=== PATIENT | male | born 1985 | race Caucasian/White ===

== ENCOUNTER 2021-08-13 16:56 | Emergency (ER) | payer MEDICAID, SELFPAY ==
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
[2021-08-13 17:04] VITALS: BP 124/76; PULSE 115; RESP 18; TEMP 36.6; O2SAT 98; BMI 33.4
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
== END 2021-08-13 19:03 ==
PROVIDERS: Emergency Provider Internal Medicine
DX: F10.920 Alcohol use, unspecified with intoxication, uncomplicated (principal); Y90.9 Presence of alcohol in blood, level not specified; S00.83XA Contusion of other part of head, initial encounter; Y04.2XXA Assault by strike against or bumped into by another person, initial encounter; Y93.9 Activity, unspecified; Y92.9 Unspecified place or not applicable; Y99.9 Unspecified external cause status
CPT/HCPCS: 70450; 99282; 99284

== ENCOUNTER 2021-09-14 18:31 | Emergency (ER) | payer MEDICAID, SELFPAY ==
[2021-09-14 18:44] VITALS: BP 170/114; BP 171/112; PULSE 100; PULSE 91; RESP 19; TEMP 36.9; O2SAT 96; BMI 29.0
--- NOTE | 2021-09-14 19:35 | ECG_ITS ---
Test Reason : OVERDOSE Blood Pressure : / mmHG Vent. Rate : 080 BPM Atrial Rate : 080 BPM P-R Int : 140 ms QRS Dur : 096 ms QT Int : 374 ms P-R-T Axes : 000 157 151 degrees QTc Int : 431 ms Limb lead reversal. Normal sinus rhythm with sinus arrhythmia Otherwise normal ECG No previous ECGs available Referred By: Quincy Askew Electronically Signed By:Antonio Lucas
--- NOTE | 2021-09-14 19:36 | ED_ITS ---
HPI - General Adult General Chief complaint: Anxiety Stated complaint: ?medication error Time Seen by Provider: 09/14/21 19:34 Source: patient and EMS Mode of arrival: EMS Limitations: no limitations History of Present Illness HPI narrative: 35-year-old male brought in by ambulance for evaluation after taking too many pills of gabapentin for anxiety. Patient stated that he talk 13-14 pills of 300 mg each gabapentin that he normally use for anxiety, patient felt very anxious trying to calm himself down, patient declined any intention to hurt himself, not feeling suicidal or homicidal, no hallucination. Patient had a history of high blood pressure taking metoprolol normally. Patient appears anxious just because being in the hospital setting, Related Data Allergies Allergy/AdvReac Type Severity Reaction Status Date / Time clarithromycin [From Biaxin] Allergy Mild UNKNOWN Unverified 06/25/20 16:50 haloperidol [From Haldol] Allergy Mild UNKNOWN Unverified 06/25/20 16:50 sertraline [From Zoloft] Allergy Mild seizure Unverified 06/25/20 16:50 Review of Systems Review of Systems: All other systems are reviewed and are negative Constitutional: Reports as per HPI and Reports no additional constitutional complaints Eyes: Reports as per HPI and Reports no additional eye complaints Reports system reviewed and no additional complaints, except as documented Cardiovascular: Reports as per HPI and Reports no additional cardiovascular complaints Respiratory: Reports as per HPI and Reports no additional respiratory complaints Gastrointestinal: Reports as per HPI and Reports no additional gastrointestinal complaints Genitourinary: Reports no additional female genitourinary complaints Musculoskeletal: Reports no additional musculoskeletal complaints Skin/Breast: Reports system reviewed and no additional complaints, except as docu Psychiatric: Reports no additional psychiatric complaints Endocrine: Reports no additional endocrine complaints Hematologic/Lymphatic: Reports no additional hematologic/lymphatic complaints Allergic/Immunologic: Reports no additional allergic/immunologic complaints Reports system reviewed and no additional complaints, except as documented and Reports Abnormal speech present [facility] Social History Social History Advance Directives: No Physical Exam Vital Signs: Vital Signs: Last Vital Signs Temp 98.5 F 09/14/21 20:02 Pulse 93 09/14/21 20:02 Resp 20 09/14/21 20:02 BP 145/98 H 09/14/21 20:02 Pulse Ox 96 09/14/21 18:44 BMI result Body Mass Index 29.0 Vital signs have been reviewed as appeared to be correct. Blood pressure elevated. Heart rate normal. Respiration rate normal. Temperature normal. Oxygen saturation normal. Appearance: Alert. Oriented X3. No acute distress. Appear anxious Head: Normal external exam. Normocephalic. Atraumatic. No Armstrong signs noted. No raccoon eyes noted Eyes: PERRLA. EOMI. Conjunctiva and sclera normal. Eyelids normal. ENT: TM's Normal. Pharynx normal. Uvula midline. Moist mucous membranes. No trismus noted. No drooling noted. No muffled voice noted. Neck: Normal inspection. Neck supple. FROM. No adenopathy. Thyroid Normal. No meningeal signs. No neck mass noted. CVS: Normal heart rate and rhythm. Heart sound normal. No murmurs noted. Pulses normal throughout. Respiratory: No respiratory distress. Painless inspiration. Breath sounds normal. No wheezes/rales/rhonchi noted. Chest nontender. No accessory muscle usage noted or decreased air movement noted. Abdomen: Soft and nontender. Bowel sounds normal in all 4 quadrants. No distention noted. No organomegaly noted. No visible injury noted. Back: No CVA tenderness. Full range of motion noted. Skin: Skin warm and dry. Normal skin color. Normal skin turgor. No rashes/lesions/lacerations noted. Extremities: No lower extremity edema. Extremities exhibit normal range of motion. Extremities nontender. Neuro: Oriented X 3. Cranial nerve exam: II-XII are grossly intact No motor deficit. No sensory deficit. Reflexes normal. Patient Appearance: Appropriate Patient Orientation: Person, Place, Time and Situation Level of Consciousness: Awake, Appropriate and Alert Patient Behavior: Talkative, Cooperative. Mood Description: Flat. Affect Description: Flat. Patient Cognition Impaired: No Ability to Follow Directions: Good Speech Pattern: Spontaneous Speech Memory Description: Intact Hallucinations: Not present. Delusions: Not Present Thought Process: Logical. Thought Content: Unremarkable Depressive Symptoms: Increased anxiety. Judgement: Fair Course Course Course Narrative: Assessment and plan. 35-year-old male with history of anxiety taking gabapentin to control his anxiety, patient felt very anxious had to take many pills of gabapentin, no SI, no HI, no hallucination, no sign of acute psychosis. Case discussed with [facility] control which is okay for the patient to be discharged, unremarkable labs in L FTs. Patient with known history of hypertension taking metoprolol found to be elevated, patient was instructed to follow up with his PCP. Reevaluation(s) Reevaluation #1: Patient now is calm, less anxious, blood pressure is improving still high, poison control recommending to observe the patient for 4 hours, patient is refusing to stay for 4 hours, patient is awake, alert, oriented x4, no SI, no HI, with good judgment, patient is competent to make his own decision, patient was advised to stay in the ED to monitor blood pressure but patient refuse and will sign AMA. Time: 20:55 Medical Decision Making Lab Data Result diagrams: 09/14/21 19:43 09/14/21 19:43 Labs: Lab Results 09/14/21 09/14/21 09/14/21 Range/Units 19:43 19:43 19:43 WBC 10.3 (4.8-10.8) X10*3/uL RBC 4.87 (4.60-5.80) X10*6/uL Hgb 15.4 (14.0-18.0) g/dl Hct 45.0 (42.0-52.0) % MCV 92.4 (80.0-98.0) fL MCH 31.6 (27.0-33.0) pg MCHC 34.2 (31.0-36.0) g/dl RDW 12.4 (11.0-16.0) % Plt Count 216 (160-400) X10*3/uL MPV 10.9 (9.4-12.4) fL Immature Gran % (Auto) 0.3 (0.0-0.4) % Neut % (Auto) 67.6 (45-73) % Lymph % (Auto) 22.9 (20-40) % [place] % (Auto) 6.2 (2-11) % Eos % (Auto) 2.7 (0-4) % Baso % (Auto) 0.3 (0-2) % Lymph # (Auto) 2.4 (1.2-4.9) X10*3/uL [place] # (Auto) 0.6 (0.1-1.2) X10*3/uL Eos # (Auto) 0.3 (0.0-0.4) X10*3/uL Baso # (Auto) 0.0 (0.0-0.2) X10*3/uL Abs Immat Gran (auto) 0.03 (0.00-0.03) X10*3/uL Absolute Neuts (auto) 7.0 (2.0-8.3) x10*3/uL Absolute Nucleated RBC 0.000 (0.0-0.012) X10*3/uL Nucleated RBC % (auto) 0.0 (0.0-0.2) /100WBC Sodium 140 (135-145) mmol/L Potassium 4.2 (3.3-5.1) mmol/L Chloride 107 (96-108) mmol/L Carbon Dioxide 21 L (22-29) mmol/L Anion Gap 16 (12-20) BUN 6 L (9-16) mg/dL Creatinine 1.03 (0.5-1.4) mg/dL Estim Creat Clear Calc 126.7 Estimated GFR > 60 Random Glucose 89 (60-115) mg/dL Calcium 9.4 (8.4-10.2) mg/dL Total Bilirubin 0.3 (0.0-1.0) mg/dL Direct Bilirubin < 0.2 (0.0-0.5) mg/dL AST 23 (5-37) U/L ALT 29 (0-40) U/L Alkaline Phosphatase 72 (39-117) U/L Troponin I High Sens < 3.5 (<3.5-35.0) ng/L Total Protein 7.4 (6.5-8.0) g/dL Albumin 4.5 (3.5-5.0) g/dL Lipase 53 (8-78) U/L Salicylates < 5.0 L (15-30) mg/dL Acetaminophen < 1 (<30) mcg/mL Discharge Plan Discharge Clinical Impression: Acute anxiety, Overdose, Hypertension Patient Disposition: Left Against Medical Advice Instructions: Anxiety (ED) Additional Instructions: Follow-up with your primary doctor for elevated blood pressure.
[2021-09-14 19:47] LABS: MANUAL DIFF FLAG NO
[2021-09-14 19:48] LABS: Basophils Percent Auto 0.3 % (0-2); Eosinophils Absolute Auto 0.3 X10*3/uL (0.0-0.4); Eosinophils Percent Auto 2.7 % (0-4); Hemoglobin 15.4 g/dl (14.0-18.0); Imm Gran Abs Auto 0.03 X10*3/uL (0.00-0.03); Imm Gran Pct Auto 0.3 % (0.0-0.4); Lymphocytes Absolute Auto 2.4 X10*3/uL (1.2-4.9); Lymphocytes Percent Auto 22.9 % (20-40); Mean Corpuscular HGB Conc 34.2 g/dl (31.0-36.0); Mean Corpuscular Hemoglobin 31.6 pg (27.0-33.0); Mean Corpuscular Volume 92.4 fL (80.0-98.0); Mean Platelet Volume 10.9 fL (9.4-12.4); Monocytes Absolute Auto 0.6 X10*3/uL (0.1-1.2); Monocytes Percent Auto 6.2 % (2-11); Neutrophils Percent Auto 67.6 % (45-73); Platelet Count 216 X10*3/uL (160-400); Red Blood Count 4.87 X10*6/uL (4.60-5.80); Red Cell Distribution Width 12.4 % (11.0-16.0); White Blood Count 10.3 X10*3/uL (4.8-10.8)
--- NOTE | 2021-09-14 19:53 | PC.NURSE ---
This RN called poison control (PC) to report overdose of Gabapentin. PC recommended to monitor for hypotension and bradycardia, and to assess toxicology labs for possible adverse reactions with other street drugs. Labs have not come back yet so this RN will call PC again once all labs are completed.
[2021-09-14 20:02] VITALS: BP 145/98; PULSE 93; RESP 20; TEMP 36.9
[2021-09-14 20:07] LABS: Troponin-I High Sensitivity < 3.5 ng/L (<3.5-35.0)
[2021-09-14 20:09] LABS: Acetaminophen LAB < 1 mcg/mL (<30); Alanine Aminotransferase 29 U/L (0-40); Albumin Level 4.5 g/dL (3.5-5.0); Alkaline Phosphatase 72 U/L (39-117); Anion Gap 16 (12-20); Aspartate Amino Transferase 23 U/L (5-37); Bilirubin Direct < 0.2 mg/dL (0.0-0.5); Bilirubin Total 0.3 mg/dL (0.0-1.0); Blood Urea Nitrogen 6 mg/dL (9-16); Calcium 9.4 mg/dL (8.4-10.2); Carbon Dioxide 21 mmol/L (22-29); Chloride 107 mmol/L (96-108); Creatinine Clr Calc Pharmacy 126.7; Estimated Glomerular Filt Rate > 60; Glucose Random 89 mg/dL (60-115); Lipase 53 U/L (8-78); Potassium 4.2 mmol/L (3.3-5.1); Salicylate < 5.0 mg/dL (15-30); Sodium 140 mmol/L (135-145); Total Protein 7.4 g/dL (6.5-8.0)
== END 2021-09-14 21:15 | disposition left against medical advice (07) ==
PROVIDERS: Emergency Provider Emergency Medicine
DX: T42.6X1A Poisoning by other antiepileptic and sedative-hypnotic drugs, accidental (unintentional), initial encounter (principal); F41.1 Generalized anxiety disorder; F43.0 Acute stress reaction; I10 Essential (primary) hypertension; Z79.899 Other long term (current) drug therapy
CPT/HCPCS: 36415; 80048; 80076; 80143; 80179; 83690; 84484; 85025; 93005; 99283; 99284